=== PATIENT | male | born 1990 | race Caucasian/White ===

== ENCOUNTER 2018-02-16 22:31 | Emergency (ER) | payer SELFPAY ==
[~2018-02-16] VITALS: Ht 175.3 cm; Wt 71.2 kg
[2018-02-16 22:38] VITALS: Ht 175.3 cm; Wt 71.2 kg
[2018-02-16 23:33] LABS: microscopic required? NO
[2018-02-16 23:45] LABS: urine erythrocyte NEGATIVE (NEGATIVE)
[2018-02-17 01:43] VITALS: BP 126/80
== END 2018-02-17 01:43 | disposition home or self-care (01) ==
LOC: ED 22:31
PROVIDERS: Emergency Medicine
DX: N43.3 Hydrocele, unspecified (principal); I86.1 Scrotal varices; N50.811 Right testicular pain
CPT/HCPCS: 87491; 87591; J0696; Q0092; Q0162